=== PATIENT | female | born 1990 | race Caucasian/White ===

== ENCOUNTER → 2017-05-04 15:40 | Outpatient (CLI) | payer OTHER, SELFPAY ==
[2017-05-11 12:02] LABS: HPV Reflexed? NOT INDICATED
== END ==
PROVIDERS: Visit Provider Obstetrics & Gynecology
DX: Z12.4 Encounter for screening for malignant neoplasm of cervix (principal)
CPT/HCPCS: 88175; G0145

== ENCOUNTER → 2017-06-04 14:47 | Outpatient (CLI) | payer OTHER, SELFPAY | PROVIDERS: Visit Provider Obstetrics & Gynecology | DX: N39.0 Urinary tract infection, site not specified (principal) | CPT/HCPCS: 87086; 87088 ==

== ENCOUNTER → 2019-08-16 17:07 | Outpatient (CLI) | payer OTHER, SELFPAY ==
[2019-08-16 21:28] LABS: Chlamydia Trachomatis by PCR Negative (Negative); Neisserai gonorrhoeae by PCR Negative (Negative); Probe Check PASS; Sample Adequacy Control PASS; Specimen Processing Control PASS
== END ==
PROVIDERS: Referring Provider Obstetrics & Gynecology; Visit Provider Obstetrics & Gynecology
DX: Z11.3 Encounter for screening for infections with a predominantly sexual mode of transmission (principal)
CPT/HCPCS: 87491; 87591

== ENCOUNTER → 2019-09-06 16:53 | Outpatient (CLI) | payer OTHER, SELFPAY ==
[2019-09-06 17:27] LABS: Absolute Lymphocyte Count 1.83 X10^3/uL (0.83-4.51); Absolute Neutrophil Count 6.2 X10^3/uL (2.0-7.7); Basophil# 0.02 X10^3/uL; Basophil% 0.2 % (0-1); Eosinophil# 0.08 X10^3/uL; Eosinophils% 0.9 % (0-5); Hematocrit 35.6 % (37-47); Hemoglobin 12.3 g/dL (12.0-15.0); Lymphocyte # 1.83 X10^3/ul (4.0); Lymphocyte % 20.8 % (19-41); Mean Corp Hgb Conc 34.6 g/dL (32-36); Mean Corpuscular Volume 89.7 fL (81-99); Mean Platelet Vol. 9.2 fl (6.2-12.0); Monocyte% 6.8 % (0-10); NRBC Flagged by Analyzer 0 % (0-5); Neutrophil # 6.23 X10^3/uL (2.7-7.7); Platelet Count 222 K/mm3 (150-450); RBC Distribution Width CV 12.7 % (11.6-14.6); RBC Distribution Width SD 41.3 fl (35.1-43.9); Red Blood Count 3.97 M/mm3 (4.2-5.4); White Blood Count 8.8 K/mm3 (4.4-11.0)
[2019-09-06 17:55] LABS: Color, Urine Yellow (Yellow); Glucose, Dipstick Normal (Normal); Ketone-Dipstick Negative (Negative); Leukocyte Esterase-Dipstick Negative /ul (Negative); Nitrite-Dipstick Negative (Negative); Occult Blood-Urine Negative /ul (Negative); Protein-Dipstick 15 mg/dl (Negative); Specific Gravity, Urine 1.015 (1.002-1.030); Urine Bilirubin Dipstick Negative (Negative); Urine Clarity Sl. Cloudy (Clear); Urine Urobilinogen Normal (Normal)
[2019-09-06 18:28] LABS: Thyroid Stim Hormone (TSH) 1.68 uIU/mL (0.358-3.74)
[2019-09-06 18:51] LABS: Amphetamine Urine VISTA NEGATIVE (<1000 ng/mL); Barbiturate Urine VISTA NEGATIVE (< 200 ng/mL); Benzodiazepine Urine VISTA NEGATIVE (< 200 ng/mL); Cocaine Urine VISTA NEGATIVE (< 300 ng/mL); Ecstacy Urine VISTA NEGATIVE (< 500 ng/mL); Methadone Urine VISTA NEGATIVE (< 300 ng/mL); PCP Urine VISTA NEGATIVE (< 25 ng/mL); THC Urine VISTA NEGATIVE (< 50 ng/mL); Vista UDS pH Range 6
[2019-09-07 01:57] LABS: Prenatal RPR NONREACTIVE (NONREACTIVE)
[2019-09-07 10:38] LABS: HIV - WCH Non-Reactive (Nonreactive); Hepatitis B Surface Antigen Non-Reactive (Nonreactive); Hepatitis C Antibody Non-Reactive (Nonreactive); Rubella IgG > 500.0 IU/mL
== END ==
PROVIDERS: Visit Provider Obstetrics & Gynecology
DX: Z34.81 Encounter for supervision of other normal pregnancy, first trimester (principal)
CPT/HCPCS: 36415; 80307; 81002; 84443; 85025; 86703; 86762; 86803; 87340

== ENCOUNTER → 2019-10-11 14:57 | Outpatient (CLI) | payer OTHER, SELFPAY ==
[2019-10-11 16:10] LABS: AST(SGOT) 32 U/L (15-37); Alanine Aminotransfer ALT/SGPT 39 U/L (13-56); Albumin, Serum 3.1 g/dL (3.2-5.0); Alkaline Phosphatase 80 U/L (45-117); Anion Gap 5 (5-15); BUN 13 mg/dL (7-18); BUN/Creat Ratio 19.6 RATIO (10-20); Calcium,Total 8.6 mg/dL (8.5-10.1); Chloride 109 mmol/L (98-107); Creatinine, Serum 0.66 mg/dL (0.55-1.02); EST Glomerular Filtration Rate 111 mL/min (>60); Est Glom Filt Rate - Afr Amer 134 mL/min (>60); Globulin 3.2 g/dL (2.2-4.2); Glucose 107 mg/dL (74-106); Potassium 3.7 mmol/L (3.5-5.1); Protein, Total 6.3 g/dL (6.4-8.2); Sodium Level 138 mmol/L (136-145)
== END ==
PROVIDERS: Visit Provider Obstetrics & Gynecology
DX: R10.10 Upper abdominal pain, unspecified (principal); R19.5 Other fecal abnormalities; N18.9 Chronic kidney disease, unspecified
CPT/HCPCS: 36415; 80053

== ENCOUNTER → 2019-10-14 | Outpatient (CLI) | payer OTHER, SELFPAY ==
[2019-10-14 08:01] LABS: 24 Hour Urine Protein 107.2 mg/24HR (<150 MG/24HR); 24HR. UA Prot. Total Volume 1675 mL; Urine Protein (24 Hour) 6.4 mg/dL (<11.9)
[2019-10-14 08:19] LABS: Creatinine, Serum 0.72 mg/dL (0.55-1.02); EST Glomerular Filtration Rate 100 mL/min (>60); Est Glom Filt Rate - Afr Amer 121 mL/min (>60)
[2019-10-14 08:20] LABS: Creat.Clear Total Volume 1675 mL; Creatinine Clearance 204 ml/min (100-200); Creatinine Serum Creat 0.7 mg/dL (0.6-1.0); EST Glomerular Filtration Rate 100 mL/min (>60); Est Glom Filt Rate - Afr Amer 121 mL/min (>60)
== END | disposition home or self-care (01) ==
LOC: LABSPEC 07:11
PROVIDERS: Referring Provider Obstetrics & Gynecology; Visit Provider Obstetrics & Gynecology
DX: R10.10 Upper abdominal pain, unspecified (principal); R19.5 Other fecal abnormalities; N18.9 Chronic kidney disease, unspecified
CPT/HCPCS: 36415; 81050; 82565; 82575; 84156; 87177; 87209

== ENCOUNTER → 2019-10-21 | Outpatient (CLI) | payer OTHER, SELFPAY | END | disposition home or self-care (01) | LOC: LABSPEC 08:45 | PROVIDERS: Referring Provider Obstetrics & Gynecology; Visit Provider Obstetrics & Gynecology | DX: R10.10 Upper abdominal pain, unspecified (principal); R19.5 Other fecal abnormalities; N18.9 Chronic kidney disease, unspecified | CPT/HCPCS: 87506 ==

== ENCOUNTER → 2020-01-19 14:59 | Outpatient (CLI) | payer OTHER, SELFPAY ==
[2020-01-19 15:57] LABS: Hemoglobin 11.2 g/dL (12.0-15.0); Mean Corp Hgb Conc 33.9 g/dL (32-36); Mean Corpuscular Hgb 31.3 pg (27.0-32.0); Mean Corpuscular Volume 92.2 fL (81-99); Mean Platelet Vol. 9.3 fl (6.2-12.0); Platelet Count 197 K/mm3 (150-450); RBC Distribution Width CV 12.9 % (11.6-14.6); RBC Distribution Width SD 43.6 fl (35.1-43.9); Red Blood Count 3.58 M/mm3 (4.2-5.4); White Blood Count 9.3 K/mm3 (4.4-11.0)
[2020-01-19 16:04] LABS: Glucose Challenge Gest 1H 50g 154 mg/dL (70-140)
== END ==
PROVIDERS: Visit Provider Obstetrics & Gynecology
DX: Z34.83 Encounter for supervision of other normal pregnancy, third trimester (principal)
CPT/HCPCS: 36415; 82950; 85027

== ENCOUNTER → 2020-02-06 07:02 | Outpatient (CLI) | payer OTHER, SELFPAY ==
[2020-02-06 08:23] LABS: Glucose GTT-Gestation. Fasting 77 mg/dL (<105)
[2020-02-06 08:54] LABS: Glucose GTT-Gestational 1 Hr 147 mg/dL (<190)
[2020-02-06 10:37] LABS: Glucose GTT-Gestational 2 Hr 133 mg/dL (<165)
[2020-02-06 11:03] LABS: Glucose GTT-Gestational 3 Hr 60 L (<145)
== END ==
PROVIDERS: PCP Nurse Practitioner; Referring Provider Obstetrics & Gynecology; Visit Provider Obstetrics & Gynecology
DX: O24.912 Unspecified diabetes mellitus in pregnancy, second trimester (principal); Z3A.00 Weeks of gestation of pregnancy not specified
CPT/HCPCS: 36415; 82951; 82952

== ENCOUNTER → 2020-03-15 09:54 | Outpatient (CLI) | payer OTHER, SELFPAY ==
[2020-03-15 12:55] LABS: Group B Strep DNA By PCR Negative (Negative); Internal Control PASS; Probe Check PASS; Specimen Processing Control PASS
== END ==
PROVIDERS: PCP Nurse Practitioner; Visit Provider Obstetrics & Gynecology
DX: Z36.85 Encounter for antenatal screening for Streptococcus B (principal)
CPT/HCPCS: 87081; 87653

== ENCOUNTER → 2020-03-28 17:20 | Outpatient (CLI) | payer OTHER, SELFPAY | PROVIDERS: PCP Nurse Practitioner; Referring Provider Obstetrics & Gynecology; Visit Provider Obstetrics & Gynecology | DX: Z03.818 Encounter for observation for suspected exposure to other biological agents ruled out (principal) | CPT/HCPCS: 87635; C9803; U0003 ==

== ENCOUNTER 2020-04-03 05:05 | Inpatient (IN) | payer OTHER, SELFPAY ==
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
[2020-04-03] VITALS (23 sets, daily range): BP systolic 108–126; BP diastolic 52–84; PULSE 68–79; RESP 16–20; TEMP 36.3–37.1; O2SAT 96–99; BMI 32.5
[2020-04-03] MEDS: Lactated Ringers 1,000 ML 999 ML IV (05:25)
[2020-04-03 05:49] LABS: Absolute Lymphocyte Count 2.22 X10^3/uL (0.83-4.51); Absolute Neutrophil Count 7.2 X10^3/uL (2.0-7.7); Basophil# 0.03 X10^3/uL; Basophil% 0.3 % (0-1); Eosinophil# 0.07 X10^3/uL; Eosinophils% 0.7 % (0-5); Hematocrit 35.6 % (37-47); Hemoglobin 12.3 g/dL (12.0-15.0); Lymphocyte # 2.22 X10^3/ul (4.0); Lymphocyte % 21.6 % (19-41); Mean Corp Hgb Conc 34.6 g/dL (32-36); Mean Corpuscular Hgb 30.9 pg (27.0-32.0); Mean Corpuscular Volume 89.4 fL (81-99); Mean Platelet Vol. 9.7 fl (6.2-12.0); Monocyte# 0.67 X10^3/uL; Monocyte% 6.5 % (0-10); NRBC Flagged by Analyzer 0 % (0-5); Neutrophil # 7.22 X10^3/uL (2.7-7.7); Neutrophil % 70.1 % (47-70); Platelet Count 195 K/mm3 (150-450); RBC Distribution Width CV 13.2 % (11.6-14.6); Red Blood Count 3.98 M/mm3 (4.2-5.4); White Blood Count 10.3 K/mm3 (4.4-11.0)
[2020-04-03] MEDS: Acetaminophen 500 MG Tablet 1000 MG PO ×3 (06:03→18:08)
[2020-04-03] MEDS: Lactated Ringers 1,000 ML 150 ML IV (06:35)
[2020-04-03] MEDS: Sodium Citrate/Citric Acid 30 ML UDC PO (07:10)
[2020-04-03] MEDS: Cefazolin 2 GM in 0.9% Normal Saline 100 ML IV (07:25)
[2020-04-03] MEDS: Methylergonovine 0.2 MG/ML Ampul IM (07:51)
--- NOTE | 2020-04-03 08:43 | OP.PCM_ITS ---
Delivery Classification: Scheduled Final ARIANNA: 04/10/20 Final ARIANNA Source: US <20 weeks Gestational age: 39 Weeks and 0 Days splicing machine operator automatic: Marianela Fish Type of Anesthesia:: Spinal - with Duramorph Implants Used: None Date of Procedure: 04/03/20 Pre-Operative Diagnosis: Prior Post-Operative Diagnosis: Prior , Adhesions Description of Procedure: Surgeon: Ford Payne MD, FACOG Anesthesia: Michael Berrios CRNA Procedure: Repeat Low Transverse Cervical Caesarean Section, Lysis of Adhesions Findings: Viable female with Apgars of 9/9 in occiput anterior presentation with moderately stained meconium amniotic fluid and normal three- vessel placenta. Indication: This is a 30-year-old who presents for her second at 39 weeks gestation. care has otherwise been uneventful. The patient has been counseled regarding the risk and indications of this procedure including the possibility of bleeding infection and injury to surrounding structures such as bowel bladder. All questions were answered. Procedure: Patient was taken to the operating room where after spinal anesthesia was placed, the patient was prepped and draped in usual sterile fashion and a Soliman catheter was placed. The abdomen was entered through the patient's prior Pfannenstiel incision and peritoneum was entered bluntly. Upon entering the peritoneum dense adhesions were noted. After developing a bladder flap on the lower uterine segment a low transverse incision was made on the uterus and head was easily delivered onto the operative field the nose mouth and oropharynx were bulb suctioned. Subsequently a viable female infant was born with Apgars of 9/9. The infant was noted to cry move all extremities vigorously on the operative field. The umbilical cord was doubly clamped and ligated and infant handed to the nursery personnel who were present for the delivery. Placenta was delivered and noted to be 3 vessels and normal. After lysing a dense band and a veil of adhesions, the uterus was exteriorized and remaining placental tissue was removed. The uterus was then closed in 2 layers first with running locked 0 Vicryl suture followed by a second imbricating layer with 0 Vicryl suture. 0 Vicryl suture was then used in a horizontal mattress interrupted fashion to affect final hemostasis of the uterine incision line. After oversewing adhesions on the anterior surface of the uterus and omental adhesions with 0 Vicryl suture, normal fallopian tubes and ovaries were visualized and the uterus was returned to the pelvis. Hemostasis was noted and rectus abdominis muscles were reapproximated in the midline with interrupted Number 0 Vicryl suture in a horizontal mattress fashion. Fascia was closed with running Number 1 PDS Strata fix suture. Subcutaneous tissue was irrigated with copious amounts of saline solution and then closed with running 3-0 Vicryl suture. Skin was closed with 4-0 monocryl suture in a running subcuticular fashion. Steri strips and a Mepilex dressing were placed across the incision. The patient tolerated the procedure well and was taken to the recovery room in satisfactory condition. Sponge, needle, and instrument counts were all reportedly correct. EBL was 750 cc. Ancef 2 gms IV was given prior to the procedure. Lysis of adhesions added approximately 20 minutes to the procedure. Spicemen to Pathology: None Complications: None
--- NOTE | 2020-04-03 08:52 | DCINST_ITS ---
Discharge Diet: No Restrictions Discharge Activity: May not drive while taking narcotic pain medications., May Shower, May Take a Tub Bath May resume sexual activity in: 4-6 weeks Lifting Restrictions: 20 pounds Additional Activity Instructions:: Nothing in the vagina for 4-6 weeks. You may return to work/school in 6 weeks. Call your doctor if your incision/area has: Continuous Slow Oozing, Sudden Increased Bleeding, Increased Pain/ Swelling, Increased Redness, Foul Smelling Discharge Call your doctor if you observe: Fever of 101 or Higher, Inability to urinate, Inability to have a bowel movement, Using more than one pad per hour Additional Instructions: If you experience any of the following, contact your healthcare provider. * Bleeding that soaks a pad every hour for 2 hours * Fever 100.4 or higher * Unrelieved incision or abdominal pain * Swelling, redness, discharge or bleeding from your incision or episiotomy site * Your incision begins to separate * Problems urinating (including inability to urinate or burning while urinating). * Visual changes * Severe headache * Flu-like symptoms * Pain or redness in one of both of your breasts * Pain, warmth, tenderness or swelling in your legs, especially the calf area * Frequent nausea and vomiting * Symptoms of depression or anxiety If you experience any of the following, call 911 or go to the nearest Emergency Room. * Chest pain * Problems breathing * Seizure activity * Partial or complete paralysis of a body part, slurred speech, weakness or drooping of the face, or a sudden inability to walk or hold your balance Allergies/Adverse Reactions: Allergies No Known Allergies Allergy (Verified 04/07/14 09:26) Medications to take at Discharge Vits [Prenatabs FA ] 1 tablet PO DAILY 04/07/14 Docusate Sodium [Colace] 100 mg PO BID PRN PRN #60 cap 04/03/20 Oxycodone [Oxyir] 5 mg PO Q6H PRN PRN 7 Days #20 tablet 04/03/20 The following prescriptions were given: Docusate Sodium [Colace] 100 mg PO BID PRN PRN #60 cap PRN Reason: Constipation Transmission Status: Pending to [facility] Oxycodone [Oxyir] 5 mg PO Q6H PRN PRN 7 Days #20 tablet PRN Reason: Pain Score 6-10 Transmission Status: Sent to [facility] Follow-Up: Call to make an appointment with your doctor for an incision check in 1-2 weeks. You will also need a 6 week post- follow up appointment. Test results from this visit will be discussed in further detail at your follow- up appointment, if applicable. Please Follow Up With: Ford Payne MD - [phone] When: Call to make an appointment for an incision check in 2 weeks. Primary Care Physician: Kendra Mercedes DATA WAREHOUSE SPECIALIST, DATA WAREHOUSE SPECIALIST-C [Primary Care Provider] -
[2020-04-03] MEDS: Oxytocin 30 units/NS 500 ml 30 UNITS/500 ML IV.SOLN 167 UNITS IV (09:10)
[2020-04-03] MEDS: Senna/Docusate Sodium 1 Tablet PO (11:50)
[2020-04-03] MEDS: Lactated Ringers 1,000 ML 100 ML IV (11:51)
[2020-04-03] MEDS: Ketorolac 30 MG/ML Syringe IV ×2 (13:41→20:06)
[2020-04-03] MEDS: Cefazolin 1 GM/50 ML BAG IV ×2 (15:07→23:46)
[2020-04-03] MEDS: Ondansetron 4 MG/2 ML Vial IV (15:07)
[2020-04-03] MEDS: 0.9% Saline Lock 10 ML Syringe IV (23:46)
[2020-04-04] MEDS: Acetaminophen 500 MG Tablet 1000 MG PO ×4 (00:30→18:20)
[2020-04-04] MEDS: 0.9% Saline Lock 10 ML Syringe IV ×2 (02:01→08:29)
[2020-04-04] MEDS: Ketorolac 30 MG/ML Syringe IV ×2 (02:01→08:29)
[2020-04-04 04:53] VITALS: BP 115/60; PULSE 72; RESP 16; TEMP 36.3
[2020-04-04 05:10] LABS: Hematocrit 29.5 % (37-47); Hemoglobin 9.8 g/dL (12.0-15.0); Mean Corp Hgb Conc 33.2 g/dL (32-36); Mean Corpuscular Hgb 30.6 pg (27.0-32.0); Mean Corpuscular Volume 92.2 fL (81-99); Mean Platelet Vol. 9.2 fl (6.2-12.0); Platelet Count 150 K/mm3 (150-450); RBC Distribution Width CV 13.4 % (11.6-14.6); White Blood Count 10.4 K/mm3 (4.4-11.0)
[2020-04-04 08:35] VITALS: BP 113/70; PULSE 71; RESP 16; TEMP 36.2; O2SAT 98
--- NOTE | 2020-04-04 09:38 | PCM.PN.OB ---
Subjective: Patient without complaints. Tolerating diet well. Positive flatus. Minimal vaginal bleeding reported. Wants to stay until tomorrow. Objective: Mepilex dressing clean and dry. Good urine output. Hemoglobin stable. - Physical Exam Vitals/I&O's: Vital Signs Temp Pulse Resp BP Pulse Ox 97.2 F L 71 16 113/70 98 04/04/20 08:35 04/04/20 08:35 04/04/20 08:35 04/04/20 08:35 04/04/20 08:35 Oxygen Delivery Method Room Air Weight: 201 lb 12.8 oz Body Mass Index (BMI) 32.5 Intake and Output for Last 24 Hours 04/02/20 04/03/20 04/04/20 23:59 23:59 23:59 Intake Total 5048.12 / 5048.12 450 / 450 Output Total 625 / 625 1025 / 1025 Balance 4423.12 / 4423.12 -575 / -575 Laboratory Results 04/04/20 05:00: WBC 10.4, RBC 3.20 L, Hgb 9.8 L, Hct 29.5 L, MCV 92.2, MCH 30.6, MCHC 33.2, RDW Std Deviation 45.0 H, RDW Coeff of Meli 13.4, Plt Count 150, MPV 9.2 Current Medications Acetaminophen (Acetaminophen 500 Mg Tablet) 1,000 mg PO Q6 [facility] Last Admin: 04/04/20 06:08 Dose: 1,000 mg Documented by: Bisacodyl (Bisacodyl 10 Mg Suppository) 10 mg RECTAL UD PRN PRN Reason: If no BM Hydrocortisone (Hydrocortisone 2.5% Crm) 1 applic TOPICAL TID PRN PRN; Protocol PRN Reason: Discomfort Lactated Ringer's () 1,000 mls @ 100 mls/hr IV .Q10H [facility] Last Admin: 04/04/20 04:40 Dose: Not Given Documented by: Ibuprofen (Ibuprofen 600 Mg Tablet) 600 mg PO Q6H [facility] Methylergonovine Maleate (Methylergonovine 0.2 Mg/Ml Ampul) 0.2 mg IM X1 PRN PRN Reason: Uterine Atony Last Admin: 04/03/20 07:51 Dose: 0.2 mg Documented by: Naloxone HCl (Naloxone 0.4 Mg/Ml Syringe) 0.02 mg IV Q1M PRN PRN Reason: RR <10 and pt unresponsive Ondansetron HCl (Ondansetron 4 Mg/2 Ml Vial) 4 mg IV Q4H PRN PRN PRN Reason: Nausea Last Admin: 04/03/20 15:07 Dose: 4 mg Documented by: Oxycodone HCl (Oxycodone 5 Mg Tablet) 5 - 10 mg PO Q4H PRN PRN PRN Reason: Pain Score 4-10 Prochlorperazine Edisylate (Prochlorperazine 10 Mg/2 Ml Vial) 10 mg IV Q6H PRN PRN PRN Reason: NAUSEA Senna/Docusate Sodium (Senna/Docusate Sodium 1 Tablet) 0 tablet PO DAILY VINOD Last Admin: 04/03/20 11:50 Dose: 1 tablet Documented by: Simethicone (Simethicone 80 Mg Tablet) 80 mg PO PCHS PRN PRN Reason: Indigestion/stomach pain Sodium Chloride (0.9% Saline Lock 10 Ml Syringe) 5 - 15 ml IV UD PRN PRN Reason: SALINE FLUSH Last Admin: 04/04/20 08:29 Dose: 10 ml Documented by: Medical Necessity - Tobacco Use Smoking Status: Never smoker Assessment/Plan Doing well postoperative day #1 status post repeat . Continue present care.
[2020-04-04] MEDS: Senna/Docusate Sodium 1 Tablet PO (10:45)
[2020-04-04] MEDS: Ibuprofen 600 MG Tablet PO ×2 (14:29→20:40)
[2020-04-04 14:30] VITALS: BP 118/77; PULSE 67; RESP 18; TEMP 36.4; O2SAT 97
[2020-04-04 20:45] VITALS: BP 112/64; PULSE 86; RESP 16; TEMP 36.9; O2SAT 97
[2020-04-05] MEDS: Acetaminophen 500 MG Tablet 1000 MG PO ×3 (00:31→12:38)
[2020-04-05] MEDS: Ibuprofen 600 MG Tablet PO ×3 (02:30→13:42)
[2020-04-05 02:33] VITALS: BP 116/68; PULSE 74; RESP 17; TEMP 36.5; O2SAT 97
--- NOTE | 2020-04-05 07:35 | PN.OBGYN_ITS ---
Subjective: Pain well controlled. No overnight complaints. - Physical Exam Vitals/I&O's: Vital Signs Temp Pulse Resp BP Pulse Ox 97.7 F L 74 17 116/68 97 04/05/20 02:33 04/05/20 02:33 04/05/20 02:33 04/05/20 02:33 04/05/20 02:33 Oxygen Delivery Method Room Air Weight: 201 lb 12.8 oz Body Mass Index (BMI) 32.5 Intake and Output for Last 24 Hours 04/03/20 04/04/20 04/05/20 23:59 23:59 23:59 Intake Total 5048.12 / 5048.12 450 / 450 Output Total 625 / 625 1025 / 1025 Balance 4423.12 / 4423.12 -575 / -575 General: Alert, Oriented x3, Cooperative, No apparent distress HEENT: Atraumatic, PERRLA Oral: Moist Mucosa Neck: Supple, No JVD Abdomen: Soft, Non Tender Extremities: No clubbing, No cyanosis Neurological: Neuro grossly intact Psych/Mental Status: Normal Affect, Appropriate, Alert and oriented to time, place, person, mood and affect Current Medications Acetaminophen (Acetaminophen 500 Mg Tablet) 1,000 mg PO Q6 [facility] Last Admin: 04/05/20 06:22 Dose: 1,000 mg Documented by: Bisacodyl (Bisacodyl 10 Mg Suppository) 10 mg RECTAL UD PRN PRN Reason: If no BM Hydrocortisone (Hydrocortisone 2.5% Crm) 1 applic TOPICAL TID PRN PRN; Protocol PRN Reason: Discomfort Ibuprofen (Ibuprofen 600 Mg Tablet) 600 mg PO Q6H [facility] Last Admin: 04/05/20 02:30 Dose: 600 mg Documented by: Methylergonovine Maleate (Methylergonovine 0.2 Mg/Ml Ampul) 0.2 mg IM X1 PRN PRN Reason: Uterine Atony Last Admin: 04/03/20 07:51 Dose: 0.2 mg Documented by: Naloxone HCl (Naloxone 0.4 Mg/Ml Syringe) 0.02 mg IV Q1M PRN PRN Reason: RR <10 and pt unresponsive Ondansetron HCl (Ondansetron 4 Mg/2 Ml Vial) 4 mg IV Q4H PRN PRN PRN Reason: Nausea Last Admin: 04/03/20 15:07 Dose: 4 mg Documented by: Oxycodone HCl (Oxycodone 5 Mg Tablet) 5 - 10 mg PO Q4H PRN PRN PRN Reason: Pain Score 4-10 Prochlorperazine Edisylate (Prochlorperazine 10 Mg/2 Ml Vial) 10 mg IV Q6H PRN PRN PRN Reason: NAUSEA Senna/Docusate Sodium (Senna/Docusate Sodium 1 Tablet) 0 tablet PO DAILY VINOD Last Admin: 04/04/20 10:45 Dose: 2 tablet Documented by: Simethicone (Simethicone 80 Mg Tablet) 80 mg PO PCHS PRN PRN Reason: Indigestion/stomach pain Last Admin: 04/05/20 05:44 Dose: 80 mg Documented by: Sodium Chloride (0.9% Saline Lock 10 Ml Syringe) 5 - 15 ml IV UD PRN PRN Reason: SALINE FLUSH Last Admin: 04/04/20 08:29 Dose: 10 ml Documented by: Medical Necessity - Tobacco Use Smoking Status: Never smoker Assessment/Plan Postoperative day 2. Pain well controlled. Okay to discharge home.
[2020-04-05 08:55] VITALS: BP 121/73; PULSE 84; RESP 18; TEMP 36.3; O2SAT 98
[2020-04-05] MEDS: Senna/Docusate Sodium 1 Tablet PO (09:42)
[2020-04-05 13:30] VITALS: BP 122/73; PULSE 80; RESP 18; TEMP 36.8; O2SAT 96
== END 2020-04-05 14:00 | disposition home or self-care (01) | DRG 787 ==
PROVIDERS: Admitting Provider Obstetrics & Gynecology; PCP Nurse Practitioner; Referring Provider Obstetrics & Gynecology; Visit Provider Obstetrics & Gynecology
PROC: 10D00Z1 Extraction of Products of Conception, Low, Open Approach (ICD-10-PCS; CPT 59514; principal; 2020-04-03 07:15)
DX: O34.211 Maternal care for low transverse scar from previous cesarean delivery (principal); O26.833 Pregnancy related renal disease, third trimester; N18.1 Chronic kidney disease, stage 1; O99.62 Diseases of the digestive system complicating childbirth; K66.0 Peritoneal adhesions (postprocedural) (postinfection); Z3A.39 39 weeks gestation of pregnancy; Z37.0 Single live birth
CPT/HCPCS: 85025; 85027; 86850; 86900; 86901; 99218; J7030; J7120; A4216; G0378; J2405

== ENCOUNTER → 2020-05-16 13:07 | Outpatient (CLI) | payer BC, SELFPAY ==
[2020-04-03 05:31] VITALS: BMI 32.5
[2020-05-20 18:02] LABS: HPV APTIMA, High Risk Negative (Negative); HPV Reflexed? YES, CHARGE PATIENT
== END ==
PROVIDERS: PCP Nurse Practitioner; Visit Provider Obstetrics & Gynecology
DX: Z12.4 Encounter for screening for malignant neoplasm of cervix (principal)
CPT/HCPCS: 87624; 88175; G0145

== ENCOUNTER → 2021-01-29 10:25 | Outpatient (CLI) | payer BC, SELFPAY ==
--- NOTE | 2021-01-29 10:35 | RAD_ITS ---
EXAM: XR CHEST, 2 VIEWS CLINICAL INDICATION: COVID TECHNIQUE: Frontal and lateral views of the chest. This report was created using [employer] report generation technology. COMPARISON: None. FINDINGS: LUNGS AND PLEURAL SPACES: Unremarkable. No consolidation or edema. No pneumothorax. No effusion. HEART: Unremarkable. Cardiac silhouette not enlarged. MEDIASTINUM: Central airways and mediastinal contour are unremarkable. BONES/JOINTS: Unremarkable. SOFT TISSUES: Unremarkable. RAD/Chest PA and Lateral IMPRESSION: No radiographic evidence of acute cardiopulmonary disease. Electronically Signed: Didier Gutierrez MD at 18:29 EDT , Service support ,
== END ==
PROVIDERS: PCP Nurse Practitioner; Referring Provider Nurse Practitioner; Visit Provider Nurse Practitioner
DX: U07.1 COVID-19 (principal)
CPT/HCPCS: 71046

== ENCOUNTER 2021-01-31 16:44 | Emergency (ER) | payer BC, SELFPAY ==
[2021-01-31 16:45] VITALS: BP 144/91; PULSE 96; RESP 16; TEMP 36.3; O2SAT 98; BMI 29.9
--- NOTE | 2021-01-31 17:20 | EX.ED.DYSGE1 ---
HPI History of Present Illness Chief Complaint: Chest Other Informant: patient Narrative Narrative: 30-year-old female states that her primary care provider sent her to the emergency room to rule out all things clots. She states that she had a baby earlier in this year and a month ago had Covid. She had a follow-up chest x-ray on Wednesday and was told that it was clear. She states that she talked with the office today and mention that for the past week she has had a burning sternal pain that radiates outward to both sides as well as a discomfort in her back. They wanted her to come in for evaluation of possible blood patient states that nothing seems to make it better or worse. She is tried Tylenol and 1 dose of ibuprofen today. Patient states that the chest is not particularly tender when she touches. She notes a continued cough with some mild sputum production. No fevers. [facility] Medical History (Updated 01/31/21 @ 18:[address] Charlie Shirley DO) COVID-19 Kidney disease Pancreatitis Home Medications fluticasone propionate [Flonase] 50 mcg INTRANASAL DAILY 01/31/21 [History Last Taken Unknown] prednisone 10 mg PO DAILY 01/31/21 [History Last Taken Unknown] Allergy/AdvReac Type Severity Reaction Status Date / Time No Known Allergies Allergy Verified 01/31/21 16:45 Surgical History (Updated 01/31/21 @ 17:46 by Earnest Florian) History of History of tonsillectomy Social History (Updated 01/31/21 @ 17:[address] Charlie Shirley DO) Smoking Status: Never smoker substance use type: does not use ROS ROS ED Constitutional Constitutional ED: Denies chills, fever(s) or weight loss Eyes Eyes: Denies change in vision or diplopia ENT ENT ED: Denies ear pain, rhinorrhea or sore throat Cardiovascular Cardiovascular: Reports chest pain; Denies orthopnea, palpitations or racing heartbeat Respiratory/Chest Respiratory/Chest: Reports cough and sputum; Denies dyspnea or orthopnea Gastrointestinal Gastrointestinal: Denies abdominal pain, diarrhea, nausea or vomiting Genitourinary Genitourinary ED: Denies dysuria, hematuria or urinary frequency Musculoskeletal Musculoskeletal: Denies arthralgias or myalgias Integumentary Denies abscess or rash Neurologic Neurologic: Denies headache(s) or weakness Psychiatric Psychiatric: Denies anxiety, depression, suicidal ideation or suicidal thoughts Endocrine Endocrinology: Denies polydipsia, polyphagia or polyuria Allergic/Immunologic Allergic/Immunologic ED: Denies mouth swelling, tongue swelling or urticaria EXAM Physical Exam Const Vital Signs: 01/31/21 16:45 01/31/21 17:39 01/31/21 17:44 Temperature 97.4 F L Temperature Source Temporal Pulse Rate 96 79 Respiratory Rate 16 16 Respiratory Effort Normal Respiratory Pattern Normal Blood Pressure 144/91 H 122/79 H Blood Pressure Mean 108 93 Pulse Ox 98 99 Oxygen Delivery Method Room Air Room Air Positive well nourished and well developed General Appearance ED: well developed HEENT Reports normocephalic, head/scalp atraumatic, TM's clear and moist mucous membranes Negative for trauma Tympanic Membrane ED: Yes TM's clear Eyes PERRL and EOMs intact bilaterally Neck no lymphadenopathy, supple and no JVD Chest Wall Chest Narrative: Tender to palpation along the costochondral border of the mid sternum. Resp normal respiratory effort and clear to auscultation bilaterally Cardio regular rate, regular rhythm and no murmurs GI normal to inspection, nondistended, normoactive bowel sounds and non-tender Palpation: soft Back/Spine no CVA tenderness and normal ROM Back/Spine Narrative: There is some right-sided mid to upper thoracic paraspinal muscle tenderness Extremity normal to inspection General Extremety ED: Negative for edema General Extremity: Negative for edema Neuro oriented x3 and CN's II-XII intact bilaterally Sensorium / Orientation: alert Motor Exam: strength 5/5 throughout Psych mental status grossly normal Mood & Affect: Negative for depressed or tearful Skin no rashes or lesions noted and no wounds MDM MDM MDM Narrative Medical decision making narrative: Interpretation of the chest x-ray is no acute process normal mediastinal silhouette. This appears unchanged from previous chest x-ray.. White count 11.8. Platelet count 327 hemoglobin 13.2. D-dimer normal at 0.29. Troponin III. BMP creatinine 1.03. At this point I think the patient can be safely discharged home. We talked about pleurisy and costochondritis and other potential causes of her chest pain. She would like to stick with anti-inflammatories which I advised her to schedule them every 8 hours. Return if worsening or concerns Lab Data Labs: Laboratory Results - last 24 hr 01/31/21 01/31/21 01/31/21 17:36 17:36 17:36 WBC 11.8 H RBC 4.47 Hgb 13.2 Hct 39.6 MCV 88.6 MCH 29.5 MCHC 33.3 RDW Std Deviation 42.4 RDW Coeff of Meli 13.1 Plt Count 327 MPV 9.1 Immature Gran % (Auto) 0.500 Neut % (Auto) 47.6 Lymph % (Auto) 41.9 H [place] % (Auto) 9.1 Eos % (Auto) 0.6 Baso % (Auto) 0.3 Absolute Neuts (auto) 5.6 Absolute Lymphs (auto) 4.96 H Nucleated RBC % 0 D-Dimer Quant (PE/DVT) 0.29 Sodium 140 Potassium 3.4 L Chloride 104 Carbon Dioxide 30.0 Anion Gap 6 BUN 17 Creatinine 1.03 H Estim Creat Clear Calc 74.09 Est GFR (MDRD) Af Amer 80 Est GFR (MDRD) Non-Af 66 BUN/Creatinine Ratio 16.5 Glucose 104 Calcium 9.4 Troponin I High Sens 3 Radiography Diagnostic Testing: Clinical Impression(s) from Imaging Studies Chest X-Ray 01/31/21 18:28 IMPRESSION: No acute radiographic abnormalities. Electronically Signed: Jones Bang MD at 18:38 EDT Tel , Service support , EKG Initial EKG: Attestation: I personally reviewed and interpreted this EKG as follows: Comments: Normal sinus rhythm with a ventricular rate of 77 bpm. Discharge Plan Triage Chief Complaint: Chest Other ED Provider: Charlie Shirley Dx/Rx/DC Orders Clinical Impression: Chest pain Instructions: ED Chest Pain, Noncardiac, ED Chest Wall Pain, Costochondritis, ED Pleurisy Prescriptions: No Action prednisone 20 mg tablet 10 mg PO DAILY RF: 0 fluticasone propionate [Flonase] 50 mcg/actuation [place],Suspension 50 mcg INTRANASAL DAILY RF: 0 Primary Care Provider: Kendra Mercedes NP Referrals: Kendra Mercedes [employer] [facility] REFEREE, [facility]-C [Primary Care Provider] - 1 Week if not improving Disposition Disposition: Home, Self Care
--- NOTE | 2021-01-31 17:22 | EKG12_ITS ---
Test Reason : CP Blood Pressure : / mmHG Vent. Rate : 077 BPM Atrial Rate : 077 BPM P-R Int : 126 ms QRS Dur : 088 ms QT Int : 374 ms P-R-T Axes : 052 046 021 degrees QTc Int : 423 ms Normal sinus rhythm with sinus arrhythmia Normal ECG Confirmed by EDWIGE MCCOY, JOHNNIE ([id number]), slot editor LESLY LO ([id number]) on 02/03/2021 10:53:32 AM Referred By: TIFFANIE Confirmed By:JOHNNIE GIBBONS MD
[2021-01-31 17:39] VITALS: BP 122/79; PULSE 79; RESP 16; O2SAT 99
[2021-01-31 17:51] LABS: Absolute Lymphocyte Count 4.96 X10^3/uL (0.83-4.51); Absolute Neutrophil Count 5.6 X10^3/uL (2.0-7.7); Basophil# 0.03 X10^3/uL; Basophil% 0.3 % (0-1); Eosinophil# 0.07 X10^3/uL; Eosinophils% 0.6 % (0-5); Hematocrit 39.6 % (37-47); Hemoglobin 13.2 g/dL (12.0-15.0); Lymphocyte # 4.96 X10^3/ul (0.83-4.51); Lymphocyte % 41.9 % (19-41); Mean Corp Hgb Conc 33.3 g/dL (32-36); Mean Corpuscular Hgb 29.5 pg (27.0-32.0); Mean Corpuscular Volume 88.6 fL (81-99); Mean Platelet Vol. 9.1 fl (6.2-12.0); Monocyte# 1.08 X10^3/uL; Monocyte% 9.1 % (0-10); NRBC Flagged by Analyzer 0 % (0-5); Neutrophil # 5.63 X10^3/uL (2.7-7.7); Neutrophil % 47.6 % (47-70); Platelet Count 327 K/mm3 (150-450); RBC Distribution Width CV 13.1 % (11.6-14.6); RBC Distribution Width SD 42.4 fl (35.1-43.9); Red Blood Count 4.47 M/mm3 (4.2-5.4); White Blood Count 11.8 K/mm3 (4.4-11.0)
[2021-01-31 18:12] LABS: Anion Gap 6 (5-15); BUN 17 mg/dL (7-18); BUN/Creat Ratio 16.5 RATIO (10-20); Calcium,Total 9.4 mg/dL (8.5-10.1); Chloride 104 mmol/L (98-107); Creatinine, Serum 1.03 mg/dL (0.55-1.02); D-Dimer Quantitative (DVT/PE) 0.29 FEU/ug/m (0.27-0.49); EST Glomerular Filtration Rate 66 mL/min (>60); Est Glom Filt Rate - Afr Amer 80 mL/min (>60); Estimated Creatinine Clearance 74.09 ml/min; Glucose 104 mg/dL (74-106); Potassium 3.4 mmol/L (3.5-5.1); Sodium Level 140 mmol/L (136-145); Troponin-I HS 3 pg/mL (3.0-54.0)
--- NOTE | 2021-01-31 18:28 | RAD_ITS ---
INDICATION: chest pain EXAMINATION/TECHNIQUE: X-RAY - XR Chest 1 View COMPARISON: 01/29/2021. FINDINGS: The lungs are clear. The cardiomediastinal silhouette is unremarkable. No pleural effusion or pneumothorax. No acute osseous abnormalities. RAD/Chest 1 View (Portable) IMPRESSION: No acute radiographic abnormalities. Electronically Signed: Jones Bang MD at 18:38 EDT Tel , Service support ,
[2021-01-31 18:59] VITALS: BP 114/78; PULSE 82; RESP 14; O2SAT 98
== END 2021-01-31 18:59 | disposition home or self-care (01) ==
PROVIDERS: Emergency Provider Emergency Medicine; PCP Nurse Practitioner
DX: R07.89 Other chest pain (principal); Z86.16 Personal history of COVID-19
CPT/HCPCS: 71045; 80048; 84484; 85025; 85379; 93005; 99284

== ENCOUNTER → 2021-09-22 | Outpatient (CLI) | payer BC, SELFPAY ==
--- NOTE | 2021-09-22 11:52 | MRI_ITS ---
STUDY: MRI BRAIN WITH AND WITHOUT CONTRAST REASON FOR EXAM: Female, 31 years old. FACIAL PARESTHESIA, LEFT SIDE OF FACE, INTERMITTENT X 2 WKS TECHNIQUE: Standardized multiplanar fat and water weighted pulse sequences were obtained. IV 17mL DOTAREM was administered for the contrast portion of the examination. COMPARISON: None. FINDINGS: Normal size of the ventricles and extra-axial spaces for the patient''s age. Normal white matter tracts of the supratentorial brain. There is no evidence for recent intracranial ischemia or other cause of cytotoxic edema on diffusion weighted imaging (DWI). Normal T2* images of the brain without demonstrated susceptibility artifact. There is no demonstrated hemosiderin stain. Normal bilateral basal ganglia. Normal thalami. There is no extra-axial fluid accumulation. Normal flow voids within the major intracranial circulation suggesting patency by spin echo criteria. Normal venous enhancement. There is no enhancing intra-axial or extra-axial abnormality. Normal sella turcica, pituitary gland, infundibular stalk, optic chiasm and hypothalamus. Normal tectal plate and pineal gland. Normal midbrain, eduardo and medulla. Normal cerebellum. Normal basal cisterns. Normal bilateral temporal bones. Normal bilateral internal auditory canals. No demonstrated orbital abnormality, within the constraints of a routine brain study. Normal visualized paranasal sinuses. Normal calvarium and skull base. Normal visualized soft tissue structures. Normal visualized upper cervical spine. MRI/Brain W/WO Contrast IMPRESSION: Normal unenhanced and enhanced MRI of the brain. Electronically Signed: Ruel Vigil MD at 13:17 EDT ,
[2021-09-22 12:05] LABS: CREATININE FINGERSTICK < 0.9 mg/dL (0.55-1.02); EGFR FINGERSTICK > 60.0000 mL/min (>60)
--- NOTE | 2021-09-22 17:25 | RAD_ITS ---
EXAM: XR CERVICAL SPINE, 2 OR 3 VIEWS CLINICAL INDICATION: neck pain Technologist Notes PT STATES NECK PAIN SINCE 09/17/21. BURNING SENSATION IN NECK, 3 MIGRAINES SINCE ONSET OF PAIN. SOME FACIAL NUMBNESS. TECHNIQUE: Frontal and lateral views of the cervical spine. This report was created using [employer] report generation technology. COMPARISON: None. FINDINGS: VERTEBRAE: Unremarkable. Preserved vertebral body height. No acute fracture. No spondylolisthesis. Preservation of the normal cervical lordosis. No significant facet arthropathy. DISC SPACES: Unremarkable. Disc spaces are maintained. SOFT TISSUES: Unremarkable. No prevertebral soft tissue widening. LUNG APICES: Clear. RAD/Cerv Spine 2 or 3 Views IMPRESSION: No evidence of acute fracture or spondylolisthesis. Electronically Signed: Didier Gutierrez MD at 18:09 EDT ,
== END | disposition home or self-care (01) ==
PROVIDERS: PCP Internal Medicine; Visit Provider Nurse Practitioner Family
DX: R20.2 Paresthesia of skin (principal)
CPT/HCPCS: 70553; 72040; A9575